=== PATIENT | male | born 1940 | race Caucasian/White ===

== ENCOUNTER → 2023-01-09 09:37 | Outpatient (CLI) | payer MEDICARE, OTHER, SELFPAY ==
[2023-01-09 11:08] LABS: Add Manual Diff / Slide Review NO; Basophils Absolute Auto 100 /uL (0-100); Basophils Percent Auto 0.7 % (0-2); Eosinophils Absolute Auto 200 /uL (0-450); Eosinophils Percent Auto 2.7 % (2-4); Hematocrit 42.2 % (41-53); Hemoglobin 14.2 g/dL (13.5-17.5); Lymphocytes Absolute Auto 2700 /uL (1100-4500); Lymphocytes Percent Auto 35.3 % (25-40); Mean Corpuscular HGB Conc 33.6 % (30-36); Mean Corpuscular Hemoglobin 30.1 PG (26-34); Mean Corpuscular Volume 89.6 fL (80-100); Monocytes Absolute Auto 800 /uL (0-900); Monocytes Percent Auto 10.4 % (3-14); Neutrophils Absolute Auto 3800 /uL (1500-7000); Neutrophils Percent Auto 50.9 % (50-75); Platelet Count 213 X10^3/uL (150-400); Red Blood Cell Count 4.71 X10^6/uL (4.5-5.9); Red Cell Distribution Width 14.2 % (11.6-14.8); White Blood Cell Count 7.5 X10^3/uL (4.5-11.0)
[2023-01-09 12:34] LABS: Folate > 20.0 ng/mL (2.76-20.0); Vitamin B12 396 pg/mL (239-931)
[2023-01-12 12:06] LABS: Vitamin B1 157.1 nmol/L (66.5-200.0)
== END ==
PROVIDERS: PCP Physician Assistant Medical; Referring Provider Ophthalmology; Visit Provider Ophthalmology
DX: H46.3 Toxic optic neuropathy (principal)
CPT/HCPCS: 36415; 82607; 82746; 84425; 85025

== ENCOUNTER → 2023-01-17 10:43 | Outpatient (CLI) | payer MEDICARE, SELFPAY ==
[2023-01-19 05:22] LABS: RPR Screen Non Reactive (Non Reactive)
[2023-01-20 15:10] LABS: QuantiFERON Mitogen Value >10.00 IU/mL (.); QuantiFERON Nil Value 0.06 IU/mL (.); QuantiFERON TB Gold Plus Negative (Negative); QuantiFERON TB1 Ag Value 0.06 IU/mL (.); QuantiFERON TB2 Ag Value 0.06 IU/mL (.)
== END ==
PROVIDERS: PCP Physician Assistant; Referring Provider Ophthalmology; Visit Provider Ophthalmology
DX: H46.3 Toxic optic neuropathy (principal)
CPT/HCPCS: 36415; 86480; 86592

== ENCOUNTER → 2023-02-21 13:28 | Outpatient (CLI) | payer MEDICARE, SELFPAY ==
[2023-02-22 18:16] LABS: Arsenic < 1 ug/L (0-9); Lead, Blood < 1.0 ug/dL (0.0-3.4); Mercury, Blood < 1.0 ug/L (0.0-14.9)
== END ==
PROVIDERS: PCP Physician Assistant; Referring Provider Ophthalmology; Visit Provider Ophthalmology
DX: H46.3 Toxic optic neuropathy (principal)
CPT/HCPCS: 36415; 82175; 82525; 83655; 83825

== ENCOUNTER → 2023-03-17 | Outpatient (CLI) | payer MEDICARE, OTHER, SELFPAY ==
--- NOTE | 2023-03-17 | DI.ECHO.S_ITS ---
[place]---------+ [facility] +---------+ : : [address] : [address] : : : : [id number] : : : : Phone: [phone]---------+ Echocardiogram Report + + :Name: LULY HALL Study Date: 03/17/2023 Height: 70 in : :[facility] ReadingLocation: Weight: 190 lb : : Gender: Male BSA: 2.0 m2 : :: 1940 Age: 82 yrs BP: 160/78 mmHg: :Reason For Study: CAD : : Performed By: Natalie Nagy : :Referring: PATIENCE RO E : + + Interpretation Summary The ejection fraction is estimated to be 50-55%. Grade I diastolic dysfunction. The left atrium is mildly dilated. The right ventricle grossly appears normal in size with probable normal systolic function. There is mild to moderate mitral regurgitation. There is mild aortic regurgitation. Pulmonary artery pressures cannot be estimated because of the lack of a measurable TR jet velocity but the IVC suggests a CVP of around 3 mmHg. Procedure: A two-dimensional transthoracic echocardiogram with color flow and Doppler was performed. The study quality was technically adequate. There is no prior echocardiogram noted for this patient. The heart rate ranged between 57-61 bpm during the study. Left Ventricle: There is normal left ventricular wall thickness. The left ventricle is normal in size. The ejection fraction is estimated to be 50-55%. There are no obvious focal wall motion abnormalities noted but poor endocardial definition reduces the sensitivity for the detection of such. Diastolic parameters suggest a pseudonormalization pattern, consistent with probable elevated filling pressures. Right Ventricle: The right ventricle grossly appears normal in size with probable normal systolic function. Atria: The left atrium is mildly dilated. Right atrial size is normal. The interatrial septum grossly appears intact with no obvious evidence for an atrial septal defect. Lipomatous hypertrophy of the interatrial septum is noted. Mitral Valve: The mitral valve leaflets appear mildly thickened, but open well. There is a flat closure plane of the the mitral valve leaflets. There is mild to moderate mitral regurgitation. Aortic Valve: The aortic valve is trileaflet. The aortic valve opens well. The aortic valve is mildly calcified. There is no aortic valve stenosis. There is mild aortic regurgitation. Tricuspid Valve: The tricuspid valve leaflets are thin and pliable. The tricuspid valve leaflets are thickened and/or calcified, but open well. There is a trace or physiologic amount of tricuspid regurgitation. Pulmonary artery pressures cannot be estimated because of the lack of a measurable TR jet velocity but the IVC suggests a CVP of around 3 mmHg. Pulmonic Valve: The pulmonic valve is not well seen, but is grossly normal. There is no pulmonic valvular regurgitation. Great Vessels: The aortic root is mildly dilated. The ascending aorta is normal in size. The aortic arch is normal in size. The IVC is of normal diameter and collapses greater than 50% with a sniff. This suggests a low right atrial pressure of 3 mm Hg. Pericardium/ Pleura There is no pericardial effusion. There is no pleural effusion. MMode/2D Measurements & Calculations LVIDd: 5.6 cm LVOT diam: 2.1 cm LVIDs: 3.1 cm Ao root diam: 4.0 cm FS: 44.1 % asc Aorta Diam: 3.4 cm EPSS: 0.36 cm Ao Arch Diam (Prox Trans): 2.9 cm IVSd: 0.80 cm LVPWd: 0.89 cm LV valle. diameter/BSA (cm/m^2): 2.8 LV sys. diameter/BSA (cm/m^2): 1.5 LA A2 area: 24.3 cm2 RA long axis: 5.8 cm LA A4 area: 26.0 cm2 RA area: 16.4 cm2 LA length (vol): 6.6 cm RA vol: 39.2 ml LA vol: 81.3 ml RA : 19.2 ml/m2 LA vol index: 39.8 ml/m2 IVC diam: 2.0 cm RVD1 (basal): 3.3 cm Doppler Measurements & Calculations Ao V2 max: 140.7 cm/sec LVOT Max Daniel: 100.9 cm/sec Ao V2 mean: 96.5 cm/sec LV V1 max P.1 mmHg Ao max P.9 mmHg LV V1 VTI: 21.6 cm Ao mean P.3 mmHg MICHELA(I,D): 2.7 cm2 Ao V2 VTI: 29.2 cm MICHELA(V,D): 2.6 cm2 sev ratio: 0.74 MICHELA indexed to BSA (cm^2/m^2): 1.3 AI P1/2t: 791.7 msec AI dec slope: 155.6 cm/sec2 MV E max daniel: 119.9 cm/sec TR max daniel: 203.8 cm/sec MV A max daniel: 110.8 cm/sec TR max P.6 mmHg MV E/A: 1.1 PA pr(Accel): 19.1 mmHg Med Peak E' Daniel: 7.0 cm/sec E/E' med: 17.1 Lat Peak E' Dnaiel: 8.0 cm/sec E/E' lat: 15.0 E/e' average: 16.1 MV dec time: 0.26 sec MR PISA: 4.1 cm2 SV(LVOT): 77.4 ml MR flow rate: 146.0 cm3/sec MR PISA radius: 0.81 cm Reading Physician:04:46 PM
--- NOTE | 2023-03-18 02:38 | DI.NM.S_ITS ---
DATE OF SERVICE: 03/17/2023 PROCEDURE: Pharmacological perfusion study. 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 RADIOPHARMACEUTICAL: 26.6 mCi technetium-99m Myoview IV was injected at stress and 12.9 mCi technetium-99m Myoview IV was injected at rest. CARDIAC STRESS: Patient underwent IV Lexiscan perfusion study under the supervision of an attending staff using standard IV Lexiscan as per protocol. Baseline rhythm was sinus with sinus bradycardia with intermittent PVCs. During stress, no convincing ischemic changes. PVCs got suppressed during Lexiscan infusion. No significant symptoms. Patient remained hemodynamically stable. Blood pressure 145/78 at rest. RAW DATA: There is increased subdiaphragmatic activity. GATED STUDY: Resting LV ejection fraction 68% and stress LV ejection fraction 76%. No obvious wall motion abnormality seen. Resting end- diastolic volume 136 mL. TID ratio 0.95, which is within normal limits. Lung/heart ratio 0.31, which is within normal limits. MYOCARDIAL PERFUSION SCAN: There is no stress prone images. Resting supine and stress supine images were compared to each other. There appears to be predominantly fixed, large size, severely decreased perfusion of inferior wall extending into the inferior apex as well as inferolateral wall and mildly decreased perfusion of distal anteroseptum, as well as inferoseptum. I do not see any reversible ischemia. Summed stress score 12 and summed rest score 14. CONCLUSION: This is an abnormal myocardial perfusion study consistent with predominantly fixed, large size, severely decreased perfusion of inferior wall extending into the inferolateral, inferior apex and distal septum without any reversible ischemia. The patient has known history of RCA occlusion in 2014 and had PCI in January 2015. Left ventricular function appears to be preserved. I would expect decreasing LV function based on perfusion defect. We will recommend getting echocardiogram to assess true LV function. No transient ischemic dilatation. No ischemic changes on EKG. Dianelys Mitchell - PEDIATRIC ONCOLOGIST/fn/ec doc#: [id number]/job#: [id number] dd: 03/17/2023 17:41:00 dt: 03/18/2023 02:12:00 DICTATING MD/COPIES TO: Madisyn Gonzales MD COPIES MNE: RAISSA;
== END ==
PROVIDERS: PCP Physician Assistant; Referring Provider Internal Medicine Cardiovascular Disease; Visit Provider Internal Medicine Cardiovascular Disease
DX: I77.810 Thoracic aortic ectasia (principal); I08.0 Rheumatic disorders of both mitral and aortic valves; I25.10 Atherosclerotic heart disease of native coronary artery without angina pectoris
CPT/HCPCS: 78452; 93017; 93306; A9502; J2785

== ENCOUNTER 2024-07-24 14:09 | Emergency (ER) | payer MEDICARE, OTHER, SELFPAY ==
[2024-07-24 14:15] VITALS: BP 111/69; PULSE 52; RESP 20; TEMP 36.6; O2SAT 100; BMI 27.5
--- NOTE | 2024-07-24 14:20 | DI.RAD.S_ITS ---
PROCEDURE: XR TOE RT 3V INDICATIONS: toe pain s/p fall TECHNIQUE: 3 views of the right 1st toe acquired. COMPARISON: None. FINDINGS: Irregular appearance of the right 1st proximal phalanx in the mid diaphysis extending distally with apparent minimal cortical offset suspicious for nondisplaced fracture. Moderate diffuse soft tissue swelling of the right 1st toe. Moderate degenerative changes of the right 1st metatarsophalangeal joint with periarticular calcifications may be an indication of gout or other process. Degenerative changes of the talonavicular, tarsal-metatarsal joints noted. No radiographic evidence of high attenuation soft tissue foreign body or dislocation. IMPRESSION: Suspected nondisplaced fracture right 1st proximal phalanx as discussed above with associated diffuse soft tissue swelling. Degenerative changes as discussed above. Periarticular calcifications adjacent to the 1st metatarsophalangeal joint raise the suspicion of gout. Dictated by: Warren Moreira M.D. on 07/24/2024 at 15:35 Approved by: Warren Moreira M.D. on 07/24/2024 at 15:38
--- NOTE | 2024-07-24 15:26 | ED_ITS ---
HPI - Extremity Injury (Lower) <Denise Lizama PA-C - Last Filed: 07/24/24 18:12> General Chief Complaint: Extremity Injury, Lower Stated Complaint: Per patient , broken Big right toe Time Seen by Provider: 07/24/24 15:23 Mode of arrival: Ambulatory History of Present Illness HPI Narrative: Mr. Mitchell is a very pleasant 83-year-old male with a past medical history of CAD, hypertension who presents to the emergency department for right great toe pain x 3 weeks. Patient is here with his daughter. About 3 weeks ago when he was walking, he tripped on a rug stubbing his right great toe causing it to flex underneath the right foot. He had immediate pain of the foot. He has noticed over the last 3 weeks that the pain has persisted and now it is slightly red and swollen. About 1 week ago he purchased a orthopedic shoe off [employer] he has been using that. Pain is quite mild at rest but when he moves the toe from [id number] it is very painful or when he presses on the base of the right great toe. He reports otherwise feeling extremely well, no fevers chills or flu-like symptoms. He has taken Tylenol occasionally which helps with the pain. Related Data Allergies Allergy/AdvReac Type Severity Reaction Status Date / Time No Known Drug Allergies Allergy Verified 07/24/24 16:28 Review of Systems <Denise Lizama PA-C - Last Filed: 07/24/24 18:12> Review of Systems ROS Unobtainable: All systems reviewed & are unremarkable except as noted in HPI and below Patient History <Denise Lizama PA-C - Last Filed: 07/24/24 18:12> Social History Smoking Status: Never smoker Smoking Status: Never smoker Exam <Denise Lizama PA-C - Last Filed: 07/24/24 18:12> Narrative Exam Narrative: GENERAL: 83 year old patient appears stated age. Well-developed patient, in no acute distress. HEAD: Atraumatic. Normocephalic. CARDIOVASCULAR: Regular rate RESPIRATORY: ?Nonlabored respirations. ?Speaking in clear, full sentences. EXTREMITIES: Focal bony tenderness to palpation of right foot 1st proximal phalanx. No open wounds or deformities of the toe. No focal 1st MTP tenderness. There is very mild edema of the right foot with very mild erythema around the right great toe. There is a bony growth on the dorsal right midfoot, right foot is warm and well perfused but right DP pulse is much softer compared to left DP pulse. Brisk capillary refill in all the toes and sensation intact to light touch on the dorsal and plantar aspect of bilateral feet. NEURO: AOx3. ?Clear speech. ?Moves all 4 extremities appropriately. SKIN: No rashes or open wounds. Initial Vital Signs Initial Vital Signs: Vital Signs Temperature 98 F 07/24/24 14:15 Pulse Rate 52 L 07/24/24 14:15 Respiratory Rate 20 07/24/24 14:15 Blood Pressure 111/69 07/24/24 14:15 Pulse Oximetry 100 07/24/24 14:15 Oxygen Delivery Method Room Air 07/24/24 14:15 <Rikki Vasquez MD - Last Filed: 08/30/24 00:08> Initial Vital Signs Initial Vital Signs: Vital Signs Temperature 98 F 07/24/24 14:15 Pulse Rate 52 L 07/24/24 14:15 Respiratory Rate 20 07/24/24 14:15 Blood Pressure 111/69 07/24/24 14:15 Pulse Oximetry 100 07/24/24 14:15 Oxygen Delivery Method Room Air 07/24/24 14:15 Course <Denise Lizama PA-C - Last Filed: 07/24/24 18:12> Orders Ordered: Discontinued Medications Naproxen (Naproxen 250 Mg Tablet) 500 mg PO NOW ONE Stop: 07/24/24 16:14 Last Admin: 07/24/24 16:28 Dose: 500 mg Documented By: LEILA Vital Signs Vital signs: Vital Signs - 8 hr 07/24/24 14:15 07/24/24 16:38 Temperature 98 F Pulse Rate 52 L 55 L Respiratory Rate 20 18 Blood Pressure 111/69 154/68 H Pulse Oximetry 100 98 Oxygen Delivery Method Room Air Room Air <Rikki Vasquez MD - Last Filed: 08/30/24 00:08> Orders Ordered: Discontinued Medications Naproxen (Naproxen 250 Mg Tablet) 500 mg PO NOW ONE Stop: 07/24/24 16:14 Last Admin: 07/24/24 16:28 Dose: 500 mg Documented By: SB Vital Signs Vital signs: Vital Signs - 8 hr 07/24/24 14:15 07/24/24 16:38 Temperature 98 F Pulse Rate 52 L 55 L Respiratory Rate 20 18 Blood Pressure 111/69 154/68 H Pulse Oximetry 100 98 Oxygen Delivery Method Room Air Room Air MDM - Extremity Injury (Lower) <Denise Lizmaa PA-C - Last Filed: 07/24/24 18:12> Medical Records Medical records narrative: None available for review Imaging Data Right Toe X-Ray: Radiologist's Impression: PROCEDURE: XR TOE RT 3V INDICATIONS: toe pain s/p fall TECHNIQUE: 3 views of the right 1st toe acquired. COMPARISON: None. FINDINGS: Irregular appearance of the right 1st proximal phalanx in the mid diaphysis extending distally with apparent minimal cortical offset suspicious for nondisplaced fracture. Moderate diffuse soft tissue swelling of the right 1st toe. Moderate degenerative changes of the right 1st metatarsophalangeal joint with periarticular calcifications may be an indication of gout or other process. Degenerative changes of the talonavicular, tarsal-metatarsal joints noted. No radiographic evidence of high attenuation soft tissue foreign body or dislocation. IMPRESSION: Suspected nondisplaced fracture right 1st proximal phalanx as discussed above with associated diffuse soft tissue swelling. Degenerative changes as discussed above. Periarticular calcifications adjacent to the 1st metatarsophalangeal joint raise the suspicion of gout. [facility] Narrative Medical decision making narrative: 83-year-old male with a past medical history of CAD, hypertension who presents to the emergency department for right great toe pain x 3 weeks. His daughter contributes to the history. Differential diagnosis includes but isn't limited to right great toe contusion, fracture, sprain, strain, gout, cellulitis, arthritis, etc. On exam the patient is in no acute distress, nontoxic appearing, vital signs appropriate. He has tenderness to palpation of the right great toe proximal phalanx, with mild surrounding edema and erythema but no signs of infection. Right great toe x-ray obtained in triage. X-ray reveals suspected nondisplaced fracture right 1st proximal phalanx as discussed above with the associated diffuse soft tissue swelling. Degenerative changes. Periarticular calcifications adjacent to the 1st metatarsophalangeal joint raise suspicion for gout. Patient's history and physical exam and x-ray consistent with 1st proximal phalanx fracture. His postoperative shoe fits him well, recommended he continue wearing this, we will also treat with naproxen b.i.d. x5 days for potential secondary gout. Discussed strict ED return precautions for any new or worsening symptoms or signs of infection. Recommended follow up with PCP or orthopedics for further evaluation of the healing fracture. Patient and his daughter verbalized understanding of all information agreeable with the plan. He is stable for discharge home. <Rikki Vasquez MD - Last Filed: 08/30/24 00:08> [facility] Narrative Medical decision making narrative: 83-year-old male with a past medical history of CAD, hypertension who presents to the emergency department for right great toe pain x 3 weeks. His daughter contributes to the history. Differential diagnosis includes but isn't limited to right great toe contusion, fracture, sprain, strain, gout, cellulitis, arthritis, etc. On exam the patient is in no acute distress, nontoxic appearing, vital signs appropriate. He has tenderness to palpation of the right great toe proximal phalanx, with mild surrounding edema and erythema but no signs of infection. Right great toe x-ray obtained in triage. X-ray reveals suspected nondisplaced fracture right 1st proximal phalanx as discussed above with the associated diffuse soft tissue swelling. Degenerative changes. Periarticular calcifications adjacent to the 1st metatarsophalangeal joint raise suspicion for gout. Patient's history and physical exam and x-ray consistent with 1st proximal phalanx fracture. His postoperative shoe fits him well, recommended he continue wearing this, we will also treat with naproxen b.i.d. x5 days for potential secondary gout. Discussed strict ED return precautions for any new or worsening symptoms or signs of infection. Recommended follow up with PCP or orthopedics for further evaluation of the healing fracture. Patient and his daughter verbalized understanding of all information agreeable with the plan. He is stable for discharge home. I was available for consultation in the Emergency Department during this patients stay, patient was seen exclusively by HAI Vasquez Discharge Plan Departure Patient Disposition: Home Clinical Impression: Closed fracture of right great toe Instructions: DI for Gout, DI for Fracture Activity Restrictions/Additional Instructions: Dear Mr. Mitchell, Thank you for coming to the emergency department. Today you were evaluated for right great toe pain. The x-ray reveals that you did break the bone in your right big toe. Your x-ray also shows some arthritis of the right foot, and some calcifications around the big toe joint that are suspicious for possible gout. I would like you to continue wearing the right foot hard bottom shoe, use the prescribed naproxen two times a day for the next 3-5 days for pain, and follow up with your primary care doctor for repeat evaluation. Please use RICE therapy for your pain in addition to naproxen/acetaminophen. Rest the painful area. Ice the area of pain/swelling for at least 15 minutes, 4x a day. Compress the area of swelling using a brace, wrap, or splint if applied. Elevate the painful or swollen extremity by supporting it above the level of the heart with pillows when sitting or laying. Please follow up with your primary care doctor within the next 2-3 days for ER follow-up. Please return to the emergency department immediately if develop any fevers or chills, increased redness or swelling of the right foot or leg, or any other concerns. You may call to schedule an appointment with [facility] for further management of your toe fracture. (If you do not have a PCP you can call [phone]. ?to schedule an appointment with an [facility] Primary Care Provider) IF YOU DEVELOP ANY NEW OR WORSENING SYMPTOMS, RETURN TO THE ER! Please read the attached instructions, they highlight more specific treatments and interventions for you at home. Thank you for letting me participate in your care, Denise Lizama PA-C Referrals: Shanon Hernandez PA-C [Primary Care Provider] - Stand Alone Forms: Patient Portal/API/Survey
--- NOTE | 2024-07-24 15:47 | PC.NURSE ---
pt reports two and a half weeks ago on 07/06/2024 he tripped on rug in bedroom, causing him to fall to knees and bend big toe of right foot backwards. pt reports since then he has iced, elevated, rested, and is now using FWW to prevent full weight bearing to reduce level of discomfort felt while walking. pt reports no improvement in selling, redness and warmth to surrounding area of right big toe/ medial right foot since injury and is concerned for fracture.
[2024-07-24] MEDS: NAPROXEN 250 MG TABLET 500 MG PO (16:28)
[2024-07-24 16:38] VITALS: BP 154/68; PULSE 55; RESP 18; O2SAT 98
== END 2024-07-24 16:40 | disposition home or self-care (01) ==
PROVIDERS: Emergency Provider Physician Assistant; PCP Physician Assistant
DX: S92.414A Nondisplaced fracture of proximal phalanx of right great toe, initial encounter for closed fracture (principal); W01.0XXA Fall on same level from slipping, tripping and stumbling without subsequent striking against object, initial encounter
CPT/HCPCS: 73660; 99283

== ENCOUNTER 2024-11-02 00:58 | Emergency (ER) | payer MEDICARE, OTHER, SELFPAY ==
[2024-11-02] VITALS (18 sets, daily range): BP systolic 123–213; BP diastolic 58–87; PULSE 54–82; RESP 15–25; TEMP 36.8; O2SAT 96–100
--- NOTE | 2024-11-02 01:04 | ED.CHESTPAIN ---
HPI - Chest Pain General Chief Complaint: Abdominal Pain Stated Complaint: Pain in lt side under rib about x12 hours Time Seen by Provider: 11/02/24 01:01 Related Data Allergies Allergy/AdvReac Type Severity Reaction Status Date / Time No Known Drug Allergies Allergy Verified 07/24/24 16:28 Exam Initial Vital Signs Initial Vital Signs: Vital Signs Temperature 98.2 F 11/02/24 01:11 Pulse Rate 65 11/02/24 01:11 Respiratory Rate 22 11/02/24 01:11 Blood Pressure 213/87 H 11/02/24 01:11 Pulse Oximetry 100 11/02/24 01:11 Oxygen Delivery Method Room Air 11/02/24 01:11 Scores HEART Score Heart Score history: Moderately Suspicious Heart Score EKG: Normal Heart Score Age: > or = 65 years old Heart Score risk factors: > 3 risk factors or hx of atherosclerotic disease Heart Score troponin: < or = to normal limit Heart Score Total: 5 Course Orders Ordered: ED Orders 11/02/24 01:02 EKG-12 Lead Stat 11/02/24 01:08 Complete Blood Count AUTO DIFF Stat Comprehensive Metabolic Panel Stat Lipase Stat Troponin & CK Cardiac Panel Stat 11/02/24 01:18 XR chest 1V Stat EKG-12 Lead Stat 11/02/24 03:08 Trop I [Troponin I] Stat Discontinued Medications Aspirin (Aspirin 81 Mg Chew Tab) 324 mg PO NOW ONE Stop: 11/02/24 01:19 Last Admin: 11/02/24 01:27 Dose: 324 mg Documented By: ALESSANDRO Nitroglycerin (Nitroglycerin Oint 1 Inch/Gm Oint...G.) 1 inch TOP NOW ONE Stop: 11/02/24 01:19 Last Admin: 11/02/24 01:27 Dose: 1 inch Documented By: ALESSANDRO Vital Signs Vital signs: Vital Signs - 8 hr 11/02/24 01:11 11/02/24 01:13 11/02/24 01:23 Temperature 98.2 F Pulse Rate 65 82 Respiratory Rate 22 21 Blood Pressure 213/87 H 204/81 H Pulse Oximetry 100 100 Oxygen Delivery Method Room Air 11/02/24 01:23 11/02/24 01:27 11/02/24 01:30 Temperature Pulse Rate 65 68 Respiratory Rate 16 Blood Pressure 204/81 H 202/82 H Pulse Oximetry 99 Oxygen Delivery Method 11/02/24 01:30 11/02/24 01:35 11/02/24 01:35 Temperature Pulse Rate 67 62 Respiratory Rate 25 H 18 Blood Pressure 186/81 H Pulse Oximetry 99 98 Oxygen Delivery Method 11/02/24 01:40 11/02/24 01:40 11/02/24 01:45 Temperature Pulse Rate 61 Respiratory Rate 17 Blood Pressure 181/77 H 172/77 H Pulse Oximetry 98 Oxygen Delivery Method 11/02/24 01:45 11/02/24 01:51 11/02/24 01:51 Temperature Pulse Rate 57 L 58 L Respiratory Rate 15 18 Blood Pressure 174/72 H Pulse Oximetry 99 97 Oxygen Delivery Method 11/02/24 02:00 11/02/24 02:00 11/02/24 02:10 Temperature Pulse Rate 57 L Respiratory Rate 20 Blood Pressure 170/73 H 165/72 H Pulse Oximetry 97 Oxygen Delivery Method 11/02/24 02:10 11/02/24 02:20 11/02/24 02:20 Temperature Pulse Rate 57 L 58 L Respiratory Rate 19 18 Blood Pressure 150/68 H Pulse Oximetry 96 96 Oxygen Delivery Method 11/02/24 02:30 11/02/24 02:30 11/02/24 02:40 Temperature Pulse Rate 56 L Respiratory Rate 16 Blood Pressure 149/63 H 145/68 H Pulse Oximetry 96 Oxygen Delivery Method 11/02/24 02:40 11/02/24 02:50 11/02/24 02:50 Temperature Pulse Rate 57 L 56 L Respiratory Rate 23 15 Blood Pressure 145/67 H Pulse Oximetry 96 97 Oxygen Delivery Method Room Air MDM - Chest Pain Lab Data 11/02/24 01:08 11/02/24 01:08 Labs: Lab Results 11/02/24 Range/Units 01:08 WBC 7.4 (4.5-11.0) X10^3/uL RBC 4.80 (4.5-5.9) X10^6/uL Hgb 14.7 (13.5-17.5) g/dL Hct 43.7 (41-53) % MCV 91.0 (80-100) fL MCH 30.6 (26-34) PG MCHC 33.6 (30-36) % RDW 14.0 (11.6-14.8) % Plt Count 167 (150-400) X10^3/uL Neut % (Auto) 42.1 L (50-75) % Lymph % (Auto) 44.4 H (25-40) % [place] % (Auto) 9.6 (3-14) % Eos % (Auto) 3.3 (2-4) % Baso % (Auto) 0.6 (0-2) % Neut # (Auto) 3100 (0091-6433) /uL Lymph # (Auto) 3300 (8448-2228) /uL [place] # (Auto) 700 (0-900) /uL Eos # (Auto) 200 (0-450) /uL Baso # (Auto) 0 (0-100) /uL Sodium 141 (137-145) mmol/L Potassium 4.4 (3.4-5.1) mmol/L Chloride 104 (98-107) mmol/L Carbon Dioxide 29 (22-32) mmol/L BUN 17 (9-20) mg/dL Creatinine 0.99 (0.66-1.25) mg/dL Estimated GFR > 60 (>60) mL/min BUN/Creatinine Ratio 17.2 (6-22) Glucose 93 (70-99) mg/dL Calcium 9.6 (8.4-10.2) mg/dL Total Bilirubin 0.3 (0.2-1.3) mg/dL AST 27 (17-59) IU/L ALT 22 (<50) IU/L Alkaline Phosphatase 41 (38-126) U/L Total Creatine Kinase 89 (55-170) U/L Troponin I < 0.012 (0.01-0.034) ng/mL Total Protein 7.6 (6.3-8.2) g/dL Albumin 4.4 (3.5-5.0) g/dL Globulin 3.2 (1.7-4.1) g/dL Albumin/Globulin Ratio 1.4 (1.0-2.8) Lipase 78 (23-300) U/L Imaging Data Chest x-ray: Radiologist's Impression: [address] [id number] XRay Report Signed Patient: Fred Mitchell MR#: [id number] : 1940 Acct:[id number] Age/Sex: 83 / M Date of Service: 11/02/24 Loc: ED Accession Number: [id number] Procedure: XR chest 1V Ordering Provider: Tom Mcmillan D.O. PROCEDURE: XR CHEST 1V INDICATIONS: chest pain TECHNIQUE: One view of the chest was acquired. COMPARISON: None. FINDINGS: Surgical changes and devices: None. Lungs and pleura: Lungs are clear. No pleural effusions or pneumothorax. Mediastinum: Mediastinal contours appear normal. Heart size is enlarged. Bones and chest wall: No suspicious bony lesions. Overlying soft tissues appear unremarkable. IMPRESSION: No acute pulmonary process. ECG Data Interpretation: NSR HR 64 SC 182 QRS [address]-t wave change No previous EKG to compare MDM Narrative Medical decision making narrative: All lab work, vital signs, nurse triage note, medication list, previous ER visits, and all imaging study reviewed. Chest x-ray showed no acute process. Heart score of 5. Two sets troponin normal. EKG showed normal sinus rhythm heart rate of [address] wave changes. Differential diagnosis STEMI NSTEMI unstable angina GERD anxiety. Patient given aspirin and nitro paste here. Patient is chest pain-free and will follow up with Dr. Lyric aldana stitchdowns toe former to call our office for appointment on Monday. Discharge Plan Departure Patient Disposition: Home Clinical Impression: Chest pain Qualifiers: Chest pain type: chest pain on breathing Qualified Code(s): R07.1 - Chest pain on breathing Instructions: DI for Chest Pain Activity Restrictions/Additional Instructions: Return with new or worsening symptoms. Please follow up with your stitchdowns toe former and to call her office on Monday for appointment. Referrals: Shanon Hernandez PA-C [Primary Care Provider, Medical] Stand Alone Forms: Patient Portal/API
--- NOTE | 2024-11-02 01:06 | EKG_ITS ---
[place] [id number] [place] [id number] Test Date: 2024-11-02 Pat Name: Fred Mitchell Department: [facility] Room: Gender: Male Box Strapper: TIFFANY MURALI : 1940 Requested By: Order Number: [id number] Reading MD: Theron Ventura Measurements Intervals [place] Rate: 64 P: 63 DC: 182 QRS: -7 QRSD: 86 T: 41 QT: 384 QTc: 396 Interpretive Statements Normal sinus rhythm with sinus arrhythmia Possible Inferior infarct , age undetermined Electronically Signed On 11-08-2024 17:53:41 PDT by Theron Ventura
--- NOTE | 2024-11-02 01:18 | DI.RAD.S_ITS ---
PROCEDURE: XR CHEST 1V INDICATIONS: chest pain TECHNIQUE: One view of the chest was acquired. COMPARISON: None. FINDINGS: Surgical changes and devices: None. Lungs and pleura: Lungs are clear. No pleural effusions or pneumothorax. Mediastinum: Mediastinal contours appear normal. Heart size is enlarged. Bones and chest wall: No suspicious bony lesions. Overlying soft tissues appear unremarkable. IMPRESSION: No acute pulmonary process. Dictated by: Bryanna Santillan M.D. on 11/02/2024 at 1:53 Approved by: Bryanna Santillan M.D. on 11/02/2024 at 1:53
[2024-11-02] MEDS: ASPIRIN 81 MG CHEW TAB 324 MG PO (01:27)
[2024-11-02] MEDS: NITROGLYCERIN OINT 1 INCH/GM OINT...G. TOP (01:27)
[2024-11-02 01:29] LABS: Add Manual Diff / Slide Review NO; Hematocrit 43.7 % (41-53); Hemoglobin 14.7 g/dL (13.5-17.5); Lymphocytes Absolute Auto 3300 /uL (1100-4500); Mean Corpuscular HGB Conc 33.6 % (30-36); Mean Corpuscular Hemoglobin 30.6 PG (26-34); Mean Corpuscular Volume 91.0 fL (80-100); Platelet Count 167 X10^3/uL (150-400)
[2024-11-02 01:35] LABS: Alanine Aminotransferase 22 IU/L (<50); Albumin 4.4 g/dL (3.5-5.0); Albumin Globulin Ratio 1.4 (1.0-2.8); Alkaline Phosphatase 41 U/L (38-126); Blood Urea Nitrogen 17 mg/dL (9-20); Calcium 9.6 mg/dL (8.4-10.2); Carbon Dioxide 29 mmol/L (22-32); Chloride 104 mmol/L (98-107); Creatine Kinase 89 U/L (55-170); Estimated Glomerular Filt Rate > 60 mL/min (>60); Globulin 3.2 g/dL (1.7-4.1); Glucose 93 mg/dL (70-99); HEMOLYSIS < 15 (0-50); Lipase 78 U/L (23-300); Potassium 4.4 mmol/L (3.4-5.1); Sodium 141 mmol/L (137-145); Total Protein 7.6 g/dL (6.3-8.2)
[2024-11-02 01:47] LABS: Troponin I < 0.012 ng/mL (0.01-0.034)
[2024-11-02 03:29] LABS: Troponin I < 0.012 ng/mL (0.01-0.034)
== END 2024-11-02 03:49 | disposition home or self-care (01) ==
PROVIDERS: Emergency Provider Family Medicine; PCP Physician Assistant
DX: R07.1 Chest pain on breathing (principal)
CPT/HCPCS: 36415; 71045; 80053; 82550; 83690; 84484; 85025; 93005; 99284